=== PATIENT | male | born 1960 | race Caucasian/White ===

== ENCOUNTER → 2019-01-29 11:58 | Outpatient (CLI) | payer MEDICARE, MEDICAID, OTHER, SELFPAY ==
--- NOTE | 2019-01-29 | DI.US.S_ITS ---
PROCEDURE: US CAROTID DOPPLER BI INDICATIONS: HEADACHE TECHNIQUE: Color and pulse Doppler interrogation was performed of both carotid systems, with image documentation and velocity measurements. COMPARISON: None. FINDINGS: Stenosis calculations are based on SRU (Society of Radiologists in Ultrasound) criteria. Right side: Brachial blood pressure: 107/69 mm Hg. Common carotid artery peak systolic velocity: 129 cm/sec. Internal carotid artery peak systolic velocity: 115 cm/sec. Internal carotid artery end diastolic velocity: 40 cm/sec. External carotid artery peak systolic velocity: 180 cm/sec. ICA/CCA peak systolic ratio: 0.9 Gaines scale imaging description: Mild scattered plaque Percent internal carotid artery stenosis: Less than 50%. Vertebral artery: Flow direction is antegrade. Left side: Brachial blood pressure: 119/63 mm Hg. Common carotid artery peak systolic velocity: 103 cm/sec. Internal carotid artery peak systolic velocity: 93 cm/sec. Internal carotid artery end diastolic velocity: 37 cm/sec. External carotid artery peak systolic velocity: 265 cm/sec. ICA/CCA peak systolic ratio: 0.9. Gaines scale imaging description: Moderate scattered plaque. Percent internal carotid artery stenosis: Less than 50%. Vertebral artery: Flow direction is antegrade. IMPRESSION: 1. Less than 50% bilateral internal carotid artery stenosis. Dictated by: Ariel Rojas [facility] Interpreted: Landry Chaparro MD on 01/29/2019 at 13:41 Approved by: Landry Chaparro M.D. on 01/29/2019 at 17:11
== END ==
PROVIDERS: PCP Family Medicine; Visit Provider Family Medicine
DX: I65.23 Occlusion and stenosis of bilateral carotid arteries (principal); R51 Headache; H53.9 Unspecified visual disturbance
CPT/HCPCS: 93880

== ENCOUNTER → 2019-04-22 12:42 | Outpatient (CLI) | payer MEDICARE, MEDICAID, OTHER, SELFPAY ==
--- NOTE | 2019-04-22 | DI.CT.S_ITS ---
PROCEDURE: CT HEAD/BRAIN WO CON INDICATIONS: Headache TECHNIQUE: Noncontrast 4.5 mm thick angled axial sections acquired from the foramen magnum to the vertex, with coronal and sagittal reformats. For radiation dose reduction, the following was used: automated exposure control, adjustment of mA and/or kV according to patient size. COMPARISON: [facility], CT, HEAD WITHOUT CONTRAST, 09/05/2007, 12:53. FINDINGS: Image quality: Excellent. CSF spaces: Basal cisterns are patent. No extra-axial fluid collections. The ventricles are symmetric in size and shape. Brain: No intracranial bleeds or masses. There is cerebral volume loss for age, with resultant ventricular and sulcal prominence. There are periventricular and deep white matter chronic small vessel ischemic changes. There is intracranial internal carotid artery atherosclerosis. Skull and face: Calvarium and visualized facial bones appear intact, without suspicious lesions. Sinuses: Visualized sinuses and mastoids are clear. IMPRESSION: Unremarkable intracranial study for age, without an imaging explanation found for the patient's presenting history of headache. Dictated by: Manish Smith M.D. on 04/22/2019 at 12:17 Approved by: Manish Smith M.D. on 04/22/2019 at 12:18
== END ==
PROVIDERS: PCP Family Medicine; Referring Provider Family Medicine; Visit Provider Family Medicine
DX: R51 Headache (principal); H53.9 Unspecified visual disturbance
CPT/HCPCS: 70450

== ENCOUNTER 2021-05-08 20:05 | Emergency (ER) | payer MEDICARE, MEDICAID, SELFPAY ==
[2021-05-08] VITALS (7 sets, daily range): BP systolic 146–149; BP diastolic 66–71; PULSE 73–85; RESP 9–31; TEMP 36.6; O2SAT 98–100; BMI 24.4
--- NOTE | 2021-05-08 20:07 | DI.CT.S_ITS ---
PROCEDURE: CT ANGIO ABD AORTA RUNOFF INDICATIONS: B/L LE pain, weakness, numbness, tingling TECHNIQUE: After the administration of intravenous contrast, 2.5 mm sections acquired from T12 to the feet, with optional delayed image acquisition from the knees to the feet. 3-dimensional maximum intensity projection (MIP) coronal and sagittal reformats, and/or 3-dimensional volume rendering reformatting was then performed. For radiation dose reduction, the following was used: automated exposure control. COMPARISON: [facility] Ultrasound, US, US ARTERIAL LOWER EXTREMITY DOPPLER BILATERAL, 04/26/2021, 12:43. FINDINGS: Image quality: Excellent. Extravascular tissues: Lung bases are clear. Heart size is normal. Liver is normal in size and enhancement. Hepatic contour is nodular. Gallbladder surgically absent . Biliary system is non dilated. Pancreas enhances normally. Spleen is normal in size and enhancement. No adrenal nodules. Kidneys are normal in size and enhancement, without hydronephrosis. Moderate thickening of the sigmoid colon. Appendix not seen. No evidence of appendicitis. Non opacified bowel loops demonstrate otherwise normal wall thickness and enhancement. No free fluid or air. No retroperitoneal or mesenteric adenopathy. No ventral hernias. Bladder wall thickness is normal. No inguinal hernias or adenopathy. No suspicious bony lesions. No vertebral body compression fractures. Abdominal aorta: There is moderate diffuse plaque causing mild diffuse stenosis. No aneurysm nor dissection. Renal and mesenteric arteries: Celiac, superior mesenteric, and inferior mesenteric arteries demonstrate mild origin stenoses. There are 2 left renal arteries which are patent. Single right renal artery is present which is patent. Right lower extremity: Moderate diffuse plaque causes mild diffuse stenosis of the common iliac artery. Internal iliac artery demonstrates a moderate origin stenosis. External iliac artery demonstrates mild diffuse calcific stenosis. Common, profunda, and superficial femoral arteries demonstrate mild multifocal stenoses. Above and below knee popliteal artery is patent. Anterior tibial artery, tibioperoneal trunk, peroneal, and posterior tibial arteries are grossly patent, but are not well visualized secondary to venous overlap. Left lower extremity: Common iliac artery is occluded. There is reconstituted flow within the internal iliac artery origin which is mildly diffusely stenotic. External iliac artery is mildly diffusely narrowed, likely secondary to flow limitation. Common, profunda, and superficial femoral arteries demonstrate mild diffuse stenosis. Above and below knee popliteal arteries are patent. Anterior tibial artery, tibioperoneal trunk, peroneal and posterior tibial arteries are grossly patent, but not well seen secondary to contrast bolus timing and venous overlap. IMPRESSION: 1. Limited evaluation secondary to contrast bolus timing and venous overlap. 2. Mild diffuse aortic stenosis. 3. Left common iliac artery occlusion. No right-sided inflow stenosis. 4. No significant outflow stenosis. 5. Limited but negative evaluation of the runoff vessels. 6. Findings suggestive of cirrhosis. Clinical correlation recommended. 7. Thickening of the sigmoid colon. Initial further assessment with colonoscopy is recommended. Dictated by: William Lin M.D. on 05/08/2021 at 21:27 Approved by: William Lin M.D. on 05/08/2021 at 21:33
--- NOTE | 2021-05-08 20:12 | ED_ITS ---
HPI - Weakness General Chief complaint: Extremity Problem,Nontraumatic Stated complaint: Leg Pain Time Seen by Provider: 05/08/21 20:07 Source: EMS Mode of arrival: EMS History of Present Illness HPI Narrative: 60-year-old maleDaily smoker with history of hypertension, chronic pain, low back and leg pain presents by EMS from [facility] stating that the pain, weakness and tingling in his left leg has moved to his right leg. He has had no problem and was referred by his primary care provider to [facility] for imaging of the arterial structures in his legs which was recently done by ultrasound and noted findings suggestive of aorto iliac inflow stenosis and right-sided outflow stenosis per the report from [facility]. He reports he has a referral to some outpatient doctor at some point in the next few weeks. He denies any fever or chills. He denies chest pain or shortness of breath. He states that the pain and weakness is now in both legs and he is unable to get around at home. He has lost the ability to ambulate such that he has been urinating and lost control of his bowels on himself. He states very clearly that it was because he was unable to make it to the toilet not that he could not control himself. Related Data Home Medications Medication Instructions Recorded Confirmed HYDROCHLOROTHIAZIDE (Hydrodiuril / 25 mg PO Q DAY #0 09/05/07 07/21/20 Hctz) LISINOPRIL (Zestril / Prinivil) 40 mg PO Q DAY #0 09/05/07 07/21/20 methocarbamol 750 mg tablet 1,500 mg PO TID #0 09/05/07 07/21/20 morphine PO 07/21/20 07/21/20 oxycodone [Percolone] PO 07/21/20 07/21/20 Allergies Allergy/AdvReac Type Severity Reaction Status Date / Time codeine Allergy Verified 05/08/21 20:12 Review of Systems Review of Systems Narrative: GENERAL: Denies chills, fatigue, malaise, fever, sweats. HEENT: Denies sinus pain, ear pain, sore throat, difficulty swallowing, dizziness. RESPIRATORY: Denies dyspnea, cough, wheezing, hemoptysis, sputum. CARDIOVASCULAR: Denies chest pain, palpitations, orthopnea, edema, GASTROINTESTINAL: Denies nausea, vomiting, abdominal pain, diarrhea, constipation, melena. : Denies dysuria, frequency, incontinence, hematuria, urinary retention. MUSCULOSKELETAL: See HPI SKIN: See HPI NEUROLOGIC: See HPI PSYCHIATRIC: No concerning psychosocial issues. 12 point review of systems is negative except for those stated above Patient History Social History Smoking Status: Current every day smoker Smoking Status: Current every day smoker Substance Use Type: does not use Exam Narrative Exam Narrative: GENERAL: [60 year old patient appears older than stated age. A bit unkempt, smells of urine HEAD: Atraumatic. Normocephalic. EYES: Pupils equal round and reactive. Extraocular motions intact. No scleral icterus. No injection or drainage. ENT: Nose without bleeding, purulent drainage. Throat without erythema, tonsillar hypertrophy or exudate. Airway patent. NECK: Trachea midline. Non tender CARDIOVASCULAR: Regular rate and rhythm without murmurs, gallops, or rubs. RESPIRATORY: Clear to auscultation. Breath sounds equal bilaterally. No wheezes, rales, or rhonchi. GASTROINTESTINAL: Abdomen soft, non-tender, nondistended. EXTREMITIES: Bilateral lower extremities cool to the touch with difficult to palpate dorsalis pedis, sluggish cap refill bilaterally, no pain on palpation, no saddle anesthesia BACK: Nontender without deformity or crepitance. No flank tenderness. NEURO: AOx3. SKIN: No rash or erythema of visible areas Initial Vital Signs Initial Vital Signs: Vital Signs Temperature 97.9 F 05/08/21 20:10 Pulse Rate 85 05/08/21 20:10 Respiratory Rate 12 05/08/21 20:10 Blood Pressure 149/71 H 05/08/21 20:10 Pulse Oximetry 99 05/08/21 20:10 Course Orders Ordered: ED Orders 05/08/21 20:07 CT angio abd aorta runoff Stat 05/08/21 20:25 Complete Blood Count AUTO DIFF Stat Comprehensive Metabolic Panel Stat Lactate (Lactic Acid) Stat Magnesium Stat NT-proBNP (BNP-Adult 18+) Stat Troponin & CK Cardiac Panel Stat 05/08/21 21:03 COVID19 -Nasal swab/Pre-Proc Stat 05/08/21 21:31 EKG-12 Lead Stat 05/08/21 22:15 Partial Thromboplastin Time DAILY 05/09/21 05:00 Hemoglobin and Hematocrit DAILY 05/09/21 22:15 Partial Thromboplastin Time DAILY 05/10/21 22:15 Partial Thromboplastin Time DAILY 05/11/21 22:15 Partial Thromboplastin Time DAILY 05/12/21 22:15 Partial Thromboplastin Time DAILY 05/13/21 22:15 Partial Thromboplastin Time DAILY 05/14/21 22:15 Partial Thromboplastin Time DAILY Heparin Sodium/Dextrose (Heparin Drip) 25,000 unit in 500 mls @ 20 mls/hr IV CONT WOLFGANG; Protocol Discontinued Medications Heparin Sodium (Porcine) (Heparin 5,000 Unit/Ml Vial) 5,000 unit IV NOW ONE Stop: 05/08/21 22:16 Consultations Consultation #1: Oanh agrees with EKG result, requests transfer to [facility] Consultation #2: discussed with Dr. Castillo ([facility] ED) happy to accept Vital Signs Vital signs: Vital Signs - 8 hr 05/08/21 20:10 05/08/21 20:33 05/08/21 21:35 Temperature 97.9 F Pulse Rate 85 75 83 Respiratory Rate 12 Blood Pressure 149/71 H 146/66 H Pulse Oximetry 99 99 100 05/08/21 21:57 Temperature Pulse Rate 77 Respiratory Rate 12 Blood Pressure 146/70 H Pulse Oximetry 100 MDM - Weakness Lab Data Result diagrams: 05/08/21 20:25 05/08/21 20:25 Labs: Lab Results 05/08/21 05/08/21 05/08/21 Range/Units 20:25 20:25 20:25 WBC 16.3 H (4.5-11.0) X10^3/uL RBC 4.99 (4.5-5.9) X10^6/uL Hgb 14.3 (13.5-17.5) g/dL Hct 42.0 (41-53) % MCV 84.3 (80-100) fL MCH 28.6 (26-34) PG MCHC 34.0 (30-36) % RDW 13.3 (11.6-14.8) % Plt Count 297 (150-400) X10^3/uL Neut % (Auto) 82.2 H (50-75) % Lymph % (Auto) 8.6 L (25-40) % [place] % (Auto) 8.0 (3-14) % Eos % (Auto) 0.6 L (2-4) % Baso % (Auto) 0.6 (0-2) % Neut # (Auto) 14044 H (0326-0569) /uL Lymph # (Auto) 1400 (3132-4267) /uL [place] # (Auto) 1300 H (0-900) /uL Eos # (Auto) 100 (0-450) /uL Baso # (Auto) 100 (0-100) /uL Sodium 135 L (137-145) mmol/L Potassium 4.3 (3.4-5.1) mmol/L Chloride 97 L (98-107) mmol/L Carbon Dioxide 29 (22-32) mmol/L BUN 75 H (9-20) mg/dL Creatinine 1.49 H (0.66-1.25) mg/dL Estimated GFR 47.8 L (>60) mL/min BUN/Creatinine Ratio 50.3 H (6-22) Glucose 115 H (80-110) mg/dL Lactate 1.2 (0.7-2.1) mmol/L Calcium 10.7 H (8.4-10.2) mg/dL Magnesium 3.3 H (1.6-2.3) mg/dL Total Bilirubin 0.8 (0.2-1.3) mg/dL AST 150 H (17-59) IU/L ALT 82 H (<50) IU/L Alkaline Phosphatase 81 (38-126) U/L Total Creatine Kinase 2326 H (55-170) U/L CK-MB (CK-2) 7.82 H (<2.37) ng/mL CK-MB (CK-2) Rel Index 0.3 L (1.5-5.0) % Troponin I 0.816 H* (0.01-0.034) ng/mL NT-Pro-B Natriuret Pep 237 H (<125) pg/mL Total Protein 9.4 H (6.3-8.2) g/dL Albumin 4.8 (3.5-5.0) g/dL Globulin 4.6 H (1.7-4.1) g/dL Albumin/Globulin Ratio 1.0 (1.0-2.8) SARS-CoV-2 (PCR) (Negative) 05/08/21 Range/Units 21:03 WBC (4.5-11.0) X10^3/uL RBC (4.5-5.9) X10^6/uL Hgb (13.5-17.5) g/dL Hct (41-53) % MCV (80-100) fL MCH (26-34) PG MCHC (30-36) % RDW (11.6-14.8) % Plt Count (150-400) X10^3/uL Neut % (Auto) (50-75) % Lymph % (Auto) (25-40) % [place] % (Auto) (3-14) % Eos % (Auto) (2-4) % Baso % (Auto) (0-2) % Neut # (Auto) (3266-5028) /uL Lymph # (Auto) (0437-2647) /uL [place] # (Auto) (0-900) /uL Eos # (Auto) (0-450) /uL Baso # (Auto) (0-100) /uL Sodium (137-145) mmol/L Potassium (3.4-5.1) mmol/L Chloride (98-107) mmol/L Carbon Dioxide (22-32) mmol/L BUN (9-20) mg/dL Creatinine (0.66-1.25) mg/dL Estimated GFR (>60) mL/min BUN/Creatinine Ratio (6-22) Glucose (80-110) mg/dL Lactate (0.7-2.1) mmol/L Calcium (8.4-10.2) mg/dL Magnesium (1.6-2.3) mg/dL Total Bilirubin (0.2-1.3) mg/dL AST (17-59) IU/L ALT (<50) IU/L Alkaline Phosphatase (38-126) U/L Total Creatine Kinase (55-170) U/L CK-MB (CK-2) (<2.37) ng/mL CK-MB (CK-2) Rel Index (1.5-5.0) % Troponin I (0.01-0.034) ng/mL NT-Pro-B Natriuret Pep (<125) pg/mL Total Protein (6.3-8.2) g/dL Albumin (3.5-5.0) g/dL Globulin (1.7-4.1) g/dL Albumin/Globulin Ratio (1.0-2.8) SARS-CoV-2 (PCR) Negative (Negative) Imaging Data CT scan - abdomen/pelvis: Radiologist Impression: Launch?[address] [address] [address] Scan Report Signed Patient: Dmitri Gaines MR#: [id number] : 1960 Acct:[id number] Age/Sex: 60 / M Date of Service: 05/08/21 Loc: ED Accession Number: [id number] ?? Procedure: CT angio abd aorta runoff Ordering Provider: Neymar Gonzalez D.O. PROCEDURE:? CT ANGIO ABD AORTA RUNOFF ? INDICATIONS:? B/L LE pain, weakness, numbness, tingling ? TECHNIQUE:? After the administration of intravenous contrast, 2.5 mm sections acquired from T12 to the feet, with optional delayed image acquisition from the knees to the feet.? 3-dimensional maximum intensity projection (MIP) coronal and sagittal reformats, and/or 3-dimensional volume rendering reformatting was then performed.? For radiation dose reduction, the following was used:? automated exposure control.? ? COMPARISON:? [facility] Ultrasound, US, US ARTERIAL LOWER EXTREMITY DOPPLER BILATERAL, 04/26/2021, 12:43. ? FINDINGS:? Image quality:? Excellent.? ? Extravascular tissues:? Lung bases are clear.? Heart size is normal.? Liver is normal in size and enhancement.? Hepatic contour is nodular.? Gallbladder surgically absent .? Biliary system is non dilated.? Pancreas enhances normally.? Spleen is normal in size and enhancement.? No adrenal nodules.? Kidneys are normal in size and enhancement, without hydronephrosis.? Moderate thickening of the sigmoid colon.? Appendix not seen.? No evidence of appendicitis.? Non opacified bowel loops demonstrate otherwise normal wall thickness and enhancement.? No free fluid or air.? No retroperitoneal or mesenteric adenopathy.? No ventral hernias.? Bladder wall thickness is normal.? No inguinal hernias or adenopathy.? No suspicious bony lesions.? No vertebral body compression fractures.? ? Abdominal aorta:? There is moderate diffuse plaque causing mild diffuse stenosis.? No aneurysm nor dissection. ? Renal and mesenteric arteries:? Celiac, superior mesenteric, and inferior mesen teric arteries demonstrate mild origin stenoses.? There are 2 left renal arteries which are patent.? Single right renal artery is present which is patent. ? Right lower extremity:? Moderate diffuse plaque causes mild diffuse stenosis of the common iliac artery.? Internal iliac artery demonstrates a moderate origin stenosis.? External iliac artery demonstrates mild diffuse calcific stenosis.? Common, profunda, and superficial femoral arteries demonstrate mild multifocal stenoses.? Above and below knee popliteal artery is patent.? Anterior tibial artery, tibioperoneal trunk, peroneal, and posterior tibial arteries are grossly patent, but are not well visualized secondary to venous overlap. ? Left lower extremity:? Common iliac artery is occluded.? There is reconstituted flow within the internal iliac artery origin which is mildly diffusely stenotic.? External iliac artery is mildly diffusely narrowed, likely secondary to flow limitation.? Common, profunda, and superficial femoral arteries demonstrate mild diffuse stenosis.? Above and below knee popliteal arteries are patent.? Anterior tibial artery, tibioperoneal trunk, peroneal and posterior tibial arteries are grossly patent, but not well seen secondary to contrast bolus timing and venous overlap. ? IMPRESSION:? 1. Limited evaluation secondary to contrast bolus timing and venous overlap. 2. Mild diffuse aortic stenosis. 3. Left common iliac artery occlusion.? No right-sided inflow stenosis. 4. No significant outflow stenosis. 5. Limited but negative evaluation of the runoff vessels. 6. Findings suggestive of cirrhosis.? Clinical correlation recommended. 7. Thickening of the sigmoid colon.? Initial further assessment with colonoscopy is recommended.? ? ? Dictated by: William Lin M.D. on 05/08/2021 at 21:27 ? ? Approved by: William Lin M.D. on 05/08/2021 at 21:33 ? ECG Data Interpretation: Normal sinus rhythm, rate 73, ST elevations in the inferior leads of without signs of ectopy MDM Narrative Medical decision making narrative: Patient presents with at least a few days of right leg pain and difficulty with ambulation. He denies any chest pain or shortness of breath, unexplained diaphoresis increased exercise intolerance or other cardiac equivalents, upon receipt of critically elevated troponin EKG was obtained which notes EKG findings consistent with STEMI. Cardiology has reviewed agrees with the read, request transfer to [facility]. EMS activated schedule ED notified, patient is aware of and in agreement with the plan Discharge Plan Departure Patient Disposition: [facility] Clinical Impression: ST elevation (STEMI) myocardial infarction Prescriptions: No Action methocarbamol 750 MG tablet 1,500 mg PO TID Qty: 0 0RF LISINOPRIL (Zestril / Prinivil) 40 mg PO Q DAY Qty: 0 0RF HYDROCHLOROTHIAZIDE (Hydrodiuril / Hctz) 25 mg PO Q DAY Qty: 0 0RF morphine PO 0RF oxycodone PO 0RF Referrals: Patrick Nunez MD [Primary Care Provider] -
[2021-05-08 20:39] LABS: Add Manual Diff / Slide Review NO; Basophils Absolute Auto 100 /uL (0-100); Basophils Percent Auto 0.6 % (0-2); Eosinophils Absolute Auto 100 /uL (0-450); Eosinophils Percent Auto 0.6 % (2-4); Hemoglobin 14.3 g/dL (13.5-17.5); Lymphocytes Absolute Auto 1400 /uL (1100-4500); Lymphocytes Percent Auto 8.6 % (25-40); Mean Corpuscular Hemoglobin 28.6 PG (26-34); Mean Corpuscular Volume 84.3 fL (80-100); Monocytes Absolute Auto 1300 /uL (0-900); Neutrophils Absolute Auto 13400 /uL (1500-7000); Neutrophils Percent Auto 82.2 % (50-75); Platelet Count 297 X10^3/uL (150-400); Red Blood Cell Count 4.99 X10^6/uL (4.5-5.9); Red Cell Distribution Width 13.3 % (11.6-14.8); White Blood Cell Count 16.3 X10^3/uL (4.5-11.0)
[2021-05-08 20:53] LABS: Alanine Aminotransferase 82 IU/L (<50); Albumin 4.8 g/dL (3.5-5.0); Alkaline Phosphatase 81 U/L (38-126); Aspartate Aminotransferase 150 IU/L (17-59); BUN Creatinine Ratio 50.3 (6-22); Bilirubin Total 0.8 mg/dL (0.2-1.3); Blood Urea Nitrogen 75 mg/dL (9-20); Calcium 10.7 mg/dL (8.4-10.2); Carbon Dioxide 29 mmol/L (22-32); Chloride 97 mmol/L (98-107); Estimated Glomerular Filt Rate 47.8 mL/min (>60); Globulin 4.6 g/dL (1.7-4.1); Glucose 115 mg/dL (80-110); HEMOLYSIS < 15 (0-50); Magnesium 3.3 mg/dL (1.6-2.3); Potassium 4.3 mmol/L (3.4-5.1); Sodium 135 mmol/L (137-145); Total Protein 9.4 g/dL (6.3-8.2)
[2021-05-08 20:54] LABS: Lactate (Lactic Acid) 1.2 mmol/L (0.7-2.1)
[2021-05-08 20:59] LABS: Creatine Kinase 2326 U/L (55-170)
[2021-05-08 21:04] LABS: NT-proBNP (BNP-Adult 18+) 237 pg/mL (<125)
[2021-05-08 21:26] LABS: COVID19 -Nasal RAPID Negative (Negative)
[2021-05-08 21:31] LABS: Troponin I 0.816 ng/mL (0.01-0.034)
[2021-05-08 21:55] LABS: CKMB % Relative Index 0.3 % (1.5-5.0); Creatine Kinase MB 7.82 ng/mL (<2.37)
[2021-05-08] MEDS: HEPARIN 5,000 UNIT/ML VIAL 5000 UNIT IV (22:33)
[2021-05-08] MEDS: HEPARIN DRIP 25,000 UNIT/500 ML IV.SOLN 20 UNIT IV (22:35)
--- NOTE | 2021-05-08 22:40 | PC.NURSE ---
Pt assited to stand and void per urinal. Skin to buttock is red and painful. Brown eschar noted to skin within gluteal fold. Sadaf care performed, pt gowned and transferred to [facility] STEMI protocol. 2nd 20 amelia PIV placed to L wrist.
[2021-05-09 00:19] LABS: PTT Partial Thromboplastin Tim 35 SECONDS (26.4-36.2)
== END 2021-05-08 22:45 | disposition short-term general hospital (02) ==
PROVIDERS: Emergency Provider Emergency Medicine; PCP Family Medicine
DX: I21.3 ST elevation (STEMI) myocardial infarction of unspecified site (principal); F17.200 Nicotine dependence, unspecified, uncomplicated; Z20.822 Contact with and (suspected) exposure to COVID-19
CPT/HCPCS: 36415; 75635; 80053; 82550; 82553; 83605; 83735; 83880; 84484; 85025; 85730; 87635; 93005; 96374; 99284; 99285; C9803; J1644; Q9967

== ENCOUNTER 2021-10-16 15:18 | Emergency (ER) | payer MEDICARE, MEDICAID, SELFPAY ==
[2021-10-16] VITALS (8 sets, daily range): BP systolic 126–150; BP diastolic 62–72; PULSE 47–58; RESP 14–23; TEMP 35.8; O2SAT 94–100; BMI 34.7
--- NOTE | 2021-10-16 15:46 | DI.RAD.S_ITS ---
PROCEDURE: XR CHEST 1V INDICATIONS: chest pain TECHNIQUE: One view of the chest was acquired. COMPARISON: None. FINDINGS: Surgical changes and devices: None. Multiple overlying devices. Lungs and pleura: Lungs are clear. No pleural effusions or pneumothorax. Mediastinum: Mediastinal contours appear normal. Heart size is normal. Bones and chest wall: No suspicious bony lesions. Overlying soft tissues appear unremarkable. IMPRESSION: No evidence of an acute cardiopulmonary abnormality. Dictated by: Raul Longoria D.O. on 10/16/2021 at 15:23 Approved by: Raul Longoria D.O. on 10/16/2021 at 15:24
[2021-10-16 15:59] LABS: Add Manual Diff / Slide Review NO; Basophils Absolute Auto 0 /uL (0-100); Basophils Percent Auto 0.7 % (0-2); Eosinophils Absolute Auto 200 /uL (0-450); Eosinophils Percent Auto 2.4 % (2-4); Hematocrit 36.3 % (41-53); Hemoglobin 12.6 g/dL (13.5-17.5); Lymphocytes Absolute Auto 1700 /uL (1100-4500); Lymphocytes Percent Auto 23.5 % (25-40); Mean Corpuscular HGB Conc 34.6 % (30-36); Monocytes Absolute Auto 600 /uL (0-900); Neutrophils Absolute Auto 4600 /uL (1500-7000); Neutrophils Percent Auto 64.4 % (50-75); Platelet Count 181 X10^3/uL (150-400); Red Blood Cell Count 4.49 X10^6/uL (4.5-5.9); Red Cell Distribution Width 12.4 % (11.6-14.8); White Blood Cell Count 7.2 X10^3/uL (4.5-11.0)
[2021-10-16 16:02] LABS: Alanine Aminotransferase 16 IU/L (<50); Albumin 3.8 g/dL (3.5-5.0); Albumin Globulin Ratio 1.3 (1.0-2.8); Alkaline Phosphatase 51 U/L (38-126); Aspartate Aminotransferase 27 IU/L (17-59); BUN Creatinine Ratio 18.1 (6-22); Bilirubin Total 0.4 mg/dL (0.2-1.3); Blood Urea Nitrogen 13 mg/dL (9-20); Calcium 8.8 mg/dL (8.4-10.2); Carbon Dioxide 26 mmol/L (22-32); Chloride 107 mmol/L (98-107); Creatine Kinase 219 U/L (55-170); Estimated Glomerular Filt Rate > 60 mL/min (>60); Globulin 2.9 g/dL (1.7-4.1); Glucose 113 mg/dL (80-110); Lipase 30 U/L (23-300); Magnesium 2.1 mg/dL (1.6-2.3); Potassium 3.7 mmol/L (3.4-5.1); Sodium 137 mmol/L (137-145); Total Protein 6.7 g/dL (6.3-8.2)
[2021-10-16 16:40] LABS: HEMOLYSIS 26 (0-50)
[2021-10-16 16:41] LABS: CKMB % Relative Index 1.7 % (1.5-5.0); Creatine Kinase MB 3.72 ng/mL (<2.37)
--- NOTE | 2021-10-16 16:45 | PC.NURSE ---
notified of pt's elevate trop
--- NOTE | 2021-10-16 17:06 | ED.SYNCOPE ---
HPI - Syncope General Chief Complaint: Syncope Stated Complaint: Hypotension Time Seen by Provider: 10/16/21 16:57 Source: patient and EMS Mode of arrival: EMS Limitations: no limitations History of Present Illness HPI narrative: This 61-year-old man with known coronary disease came to the emergency department today via [facility] from [facility] after a syncopal event at home. Last night he said he suddenly did not have the strength to stand and slowly let himself down onto the ground without injury. He called on people to help him and he got into bed and slept through the night. This morning he got up and was having a reasonably normal day but then again became profoundly weak and let himself down to the ground without a fall but he could not get up so he called 911. He never had any chest pain or shortness of breath. He suspects he probably is having a heart attack. He continues to smoke cigarettes. Past history remarkable for coronary disease and cigarette smoking Related Data Home Medications Medication Instructions Recorded Confirmed HYDROCHLOROTHIAZIDE (Hydrodiuril / 25 mg PO Q DAY ##0 09/05/07 07/21/20 Hctz) LISINOPRIL (Zestril / Prinivil) 40 mg PO Q DAY ##0 09/05/07 07/21/20 methocarbamol 750 mg tablet 1,500 mg PO TID ##0 09/05/07 07/21/20 morphine PO 07/21/20 07/21/20 oxycodone [Percolone] PO 07/21/20 07/21/20 Allergies Allergy/AdvReac Type Severity Reaction Status Date / Time codeine Allergy Verified 05/08/21 20:12 Review of Systems Review of Systems Narrative: Limited review of systems is otherwise negative. Patient History Social History Smoking Status: Current every day smoker Smoking Status: Current every day smoker Substance Use Type: does not use Exam Narrative Exam Narrative: GENERAL: Alert, cooperative and in no distress. HEAD: Atraumatic. Normocephalic. EYES: Sclera are clear without icterus. Extraocular movements are full. ENT: No rhinorrhea NECK: No visible abnormality RESPIRATORY: No respiratory distress GASTROINTESTINAL: Nondistended EXTREMITIES: No obvious trauma. NEURO: Nonfocal, normal speech SKIN: No rash or erythema of visible areas PSYCH: Normally oriented. Normal range of affect. Appropriate behavior Initial Vital Signs Initial Vital Signs: Vital Signs Pulse Rate 49 L 10/16/21 15:21 Blood Pressure 130/66 10/16/21 15:21 Pulse Oximetry 97 10/16/21 15:21 Course Course Course Narrative: The patient arrived via [facility] and EKG is suspicious for inferior ischemia. EKG obtained at 3:32 p.m. shows a sinus rhythm at 49 beats per minute. He has ST segment abnormality in lead 2 3 and AVF. I was alerted by nursing staff that he wanted to leave against medical advice. I pointed out to him that his cardiac enzymes are remarkably elevated and consistent with acute ischemia. I told him that hospitalization was certainly indicated probably cardiac catheterization. He politely declines these interventions and says he would like to go home. I told him again that to though it is his option to go home without medical treatment, there is no mystery about appropriate therapy for this condition. I strongly encouraged him to stay in the hospital and continue traditional healthcare to mitigate the possible or permanent disability associated with untreated myocardial ischemia. He still would like to go home. Orders Ordered: ED Orders 10/16/21 15:00 Complete Blood Count AUTO DIFF Stat Comprehensive Metabolic Panel Stat Lipase Stat Magnesium Stat Troponin & CK Cardiac Panel Stat 10/16/21 15:32 EKG-12 Lead Stat 10/16/21 15:46 XR chest 1V Stat Vital Signs Vital signs: Vital Signs - 8 hr 10/16/21 15:32 10/16/21 15:21 10/16/21 15:21 Temperature 96.4 F L Pulse Rate 48 L 49 L Respiratory Rate 14 Blood Pressure 126/62 130/66 Pulse Oximetry 94 97 Oxygen Delivery Method Room Air 10/16/21 15:30 10/16/21 15:31 10/16/21 15:31 Temperature Pulse Rate 47 L 48 L Respiratory Rate 18 17 Blood Pressure 126/62 Pulse Oximetry 96 98 Oxygen Delivery Method 10/16/21 16:00 10/16/21 16:01 10/16/21 16:01 Temperature Pulse Rate 51 L 51 L Respiratory Rate 23 20 Blood Pressure 139/65 Pulse Oximetry 100 100 Oxygen Delivery Method 10/16/21 16:30 10/16/21 16:30 Temperature Pulse Rate 50 L Respiratory Rate 17 Blood Pressure 134/69 Pulse Oximetry 100 Oxygen Delivery Method [facility] - Syncope Lab Data Result diagrams: 10/16/21 15:00 10/16/21 15:00 Labs: Lab Results 10/16/21 10/16/21 Range/Units 15:00 15:00 WBC 7.2 (4.5-11.0) X10^3/uL RBC 4.49 L (4.5-5.9) X10^6/uL Hgb 12.6 L (13.5-17.5) g/dL Hct 36.3 L (41-53) % MCV 81.0 (80-100) fL MCH 28.0 (26-34) PG MCHC 34.6 (30-36) % RDW 12.4 (11.6-14.8) % Plt Count 181 (150-400) X10^3/uL Neut % (Auto) 64.4 (50-75) % Lymph % (Auto) 23.5 L (25-40) % Emmet % (Auto) 9.0 (3-14) % Eos % (Auto) 2.4 (2-4) % Baso % (Auto) 0.7 (0-2) % Neut # (Auto) 4600 (2805-3941) /uL Lymph # (Auto) 1700 (4459-6606) /uL Emmet # (Auto) 600 (0-900) /uL Eos # (Auto) 200 (0-450) /uL Baso # (Auto) 0 (0-100) /uL Sodium 137 (137-145) mmol/L Potassium 3.7 (3.4-5.1) mmol/L Chloride 107 (98-107) mmol/L Carbon Dioxide 26 (22-32) mmol/L BUN 13 (9-20) mg/dL Creatinine 0.72 (0.66-1.25) mg/dL Estimated GFR > 60 (>60) mL/min BUN/Creatinine Ratio 18.1 (6-22) Glucose 113 H (80-110) mg/dL Calcium 8.8 (8.4-10.2) mg/dL Magnesium 2.1 (1.6-2.3) mg/dL Total Bilirubin 0.4 (0.2-1.3) mg/dL AST 27 (17-59) IU/L ALT 16 (<50) IU/L Alkaline Phosphatase 51 (38-126) U/L Total Creatine Kinase 219 H (55-170) U/L CK-MB (CK-2) 3.72 H (<2.37) ng/mL CK-MB (CK-2) Rel Index 1.7 (1.5-5.0) % Troponin I 1.410 H* (0.01-0.034) ng/mL Total Protein 6.7 (6.3-8.2) g/dL Albumin 3.8 (3.5-5.0) g/dL Globulin 2.9 (1.7-4.1) g/dL Albumin/Globulin Ratio 1.3 (1.0-2.8) Lipase 30 (23-300) U/L Discharge Plan Departure Patient Disposition: Left Against Medical Advice Clinical Impression: Non-STEMI (non-ST elevated myocardial infarction) Activity Restrictions/Additional Instructions: You are having a heart attack as you suspected. I recommend hospitalization and consultation with [facility] specialists. You have declined this care. You understand that you are at risk for dying from an acute heart attack or suffering permanent and profound disability associated with heart attack. You are welcome to return to the ED at any point for complete evaluation and appropriate care. I strongly encouraged to follow-up with her primary care doctor. Your cigarette smoking is certainly contributing to your coronary disease and I encourage you to quit smoking. Prescriptions: No Action methocarbamol 750 MG tablet 1,500 mg PO TID Qty: 0 LISINOPRIL (Zestril / Prinivil) 40 mg PO Q DAY Qty: 0 HYDROCHLOROTHIAZIDE (Hydrodiuril / Hctz) 25 mg PO Q DAY Qty: 0 morphine PO oxycodone PO Referrals: Patrick Nunez MD [Primary Care Provider] - Stand Alone Forms: Against Medical Advice
--- NOTE | 2021-10-16 17:26 | PC.NURSE ---
pt left er in nad with all belongings, ambulatory with own 4 wheel walker. pt refused to take dc/ fu paperwork, but signed dc papers and gave back and signed AMA paperwork after conversation with Dr. Prather.
== END 2021-10-16 17:32 | disposition left against medical advice (07) ==
PROVIDERS: Emergency Provider Family Medicine Addiction Medicine; PCP Family Medicine
DX: I21.4 Non-ST elevation (NSTEMI) myocardial infarction (principal)
CPT/HCPCS: 71045; 80053; 82550; 82553; 83690; 83735; 84484; 85025; 93005; 93010; 99283; 99284

== ENCOUNTER → 2021-12-23 06:58 | Outpatient (CLI) | payer MEDICARE, MEDICAID, SELFPAY ==
[2021-12-23 19:41] LABS: COVID19 - ORCAS (NP or Nasal) Negative (Negative)
== END ==
PROVIDERS: PCP Family Medicine; Visit Provider Family Medicine
DX: Z20.822 Contact with and (suspected) exposure to COVID-19 (principal); Z01.812 Encounter for preprocedural laboratory examination
CPT/HCPCS: C9803; U0003

== ENCOUNTER → 2022-11-14 10:40 | Outpatient (CLI) | payer MEDICARE, MEDICAID, SELFPAY ==
--- NOTE | 2022-11-14 10:58 | DI.CT.S_ITS ---
PROCEDURE: CT IVP A/P W/WO INDICATIONS: HEMATURIA TECHNIQUE: Optional 5 mm thick noncontrast images acquired from the diaphragm to the symphysis pubis. After the administration of intravenous contrast, 5 mm thick images acquired from the diaphragm to the symphysis pubis after a 10-minute delay. 2 mm thick coronal and sagittal reformats were then performed of the kidneys and ureters. For radiation dose reduction, the following was used: automated exposure control, adjustment of mA and/or kV according to patient size. COMPARISON: None. FINDINGS: Image quality: Good Lower chest: Basal scarring and atelectasis. Coronary calcifications. No hiatal hernia. Overall normal heart size. Solid organs: Liver is unremarkable. Gallbladder is absent. Post cholecystectomy moderate biliary ductal dilation is present. Correlate with any LFT abnormalities. No splenomegaly. No adrenal nodules. No solid renal mass is identified. No hydronephrosis. No calcified stones. No ureter filling defects. Portions of ureter are non opacified, possibly due to peristalsis. Vessels and lymph nodes: The main portal vein is patent. No abdominal aortic aneurysm or pathologic lymph nodes by size criteria. Atherosclerotic disease of the abdominal aorta, with soft plaque in the infrarenal portion. Bowel and peritoneum: No bowel obstruction. Under distended distal colon and rectum, with possible wall thickening, please correlate with age-appropriate colonoscopy results. No pathologic ascites. Body wall: Unremarkable Pelvis: No calcified bladder stone identified. The bladder is only partially distended, overall unremarkable CT appearance. The prostate is mildly heterogeneous, not well evaluated on CT. Bones: No acute or suspicious osseous finding. There are degenerative changes. IMPRESSION: No solid renal mass identified. No hydronephrosis or calcified stones. Lower tract should be better evaluated with cystoscopy in the setting of hematuria. Wall thickening of the distal colon and rectum, difficult to evaluate due to under distension, correlate with screening colonoscopy. Other findings as above. Dictated by: Surendra Mills M.D. on 11/14/2022 at 15:27 Approved by: Surendra Mills M.D. on 11/14/2022 at 15:36
== END ==
PROVIDERS: PCP Family Medicine; Referring Provider Urology; Visit Provider Urology
DX: R31.9 Hematuria, unspecified (principal); I25.10 Atherosclerotic heart disease of native coronary artery without angina pectoris; I70.0 Atherosclerosis of aorta; F17.200 Nicotine dependence, unspecified, uncomplicated; Z90.49 Acquired absence of other specified parts of digestive tract
CPT/HCPCS: 74178

== ENCOUNTER → 2023-04-17 13:44 | Outpatient (CLI) | payer OTHER, MEDICAID, SELFPAY ==
--- NOTE | 2023-04-21 02:33 | DI.NM.S_ITS ---
DATE OF SERVICE: 04/17/2023 STUDY: Pharmacological perfusion study. Resting study done today. Two- day study. INDICATIONS: Significant peripheral arterial disease with hypertension, hyperlipidemia, tobacco abuse, being planned to have lower extremity intervention by vascular surgeon, perfusion study being done for CAD risk stratification. RADIOPHARMACEUTICAL: 26.8 mCi technetium-99m Myoview IV was injected at stress and 26 mCi technetium-99m Myoview IV was injected at rest. CARDIAC STRESS: Patient underwent IV Lexiscan perfusion study under the supervision of an attending staff using standard Lexiscan as per protocol. Baseline rhythm, sinus bradycardia with heart rate about 47 beats per minute. Resting blood pressure 118/60. Patient remained overall hemodynamically stable. Rhythm unchanged. No new ischemic changes or new arrhythmias. Post Lexiscan blood pressure 90/50. Resting blood pressure 118/60. needed. RAW DATA: There is increased subdiaphragmatic activity. Hot spot near the inferior border of the heart. Patient's weight is 230 pounds. GATED STUDY: Stress LV ejection fraction 70% without any obvious wall motion abnormalities. Resting end-diastolic volume 135 mL. TID ratio 1.02 and lung heart ratio 0.24, which is within normal limits. However, during gated study, there appears to be some LV dilatation during stress in comparison to resting study. MYOCARDIAL PERFUSION SCAN: Stress supine and resting supine images were compared to each other. There is no stress prone images. Patient could not lie down in prone position. Resting supine images revealed large size, severely decreased perfusion of inferior wall extending into the inferior apex as well as anterior apex. Stress supine images revealed large size, severely decreased perfusion of inferior wall extending into the inferior apex as well as anterior apex. In addition to that, patient also had moderate size, mildly decreased perfusion of mid to distal anterior wall. Reversibility seen in the mid to distal anterior wall area. CONCLUSION: This is an abnormal myocardial perfusion study. There is a moderate size, mild reversible ischemia of mid to distal anterior wall. Otherwise large size, severely decreased predominantly fixed defect of inferior wall extending into the apex. On raw images, there is a hot spot near inferior border of the heart. Patient's weight is 230 pounds. There is no stress prone images. Suspect some of the component of tissue attenuation artifact, however, multivessel coronary artery disease including infarction in the RCA territory cannot be ruled out. There is also reversible ischemia in the mid LAD territory. On raw images, there appears to be stress-induced dilatation of LV in comparison to resting study; however, TID is not abnormal. Overall, left ventricular function appears to be preserved. Correlate clinically and consider left heart catheterization for further delineation of coronary artery. GainesDmitri - ARCHITECTURAL RENDERER/fn/ec doc#: [id number]/job#: [id number] dd: 04/20/2023 16:45:00 dt: 04/21/2023 01:41:00 DICTATING MD/COPIES TO: Christina Hugo MD; Rosalinda Skelton MD COPIES MNE: YENIFER;
== END ==
LOC: NUCM 13:45
PROVIDERS: PCP Family Medicine; Referring Provider Surgery; Visit Provider Surgery
DX: I25.10 Atherosclerotic heart disease of native coronary artery without angina pectoris (principal); R94.39 Abnormal result of other cardiovascular function study; I70.219 Atherosclerosis of native arteries of extremities with intermittent claudication, unspecified extremity; F17.200 Nicotine dependence, unspecified, uncomplicated
CPT/HCPCS: 78452; 93017; A9502; J2785

== ENCOUNTER → 2023-10-03 10:40 | Outpatient (CLI) | payer MEDICARE, MEDICAID, SELFPAY ==
[2023-10-03 11:56] LABS: Appearance Urine UA CLEAR; Bilirubin Urine UA NEGATIVE (NEGATIVE); Color Urine UA YELLOW; Glucose Urine UA NEGATIVE (Negative); Ketones Urine UA NEGATIVE (NEGATIVE); Leukocyte Esterase Urine UA NEGATIVE (NEGATIVE); Nitrite Urine UA NEGATIVE (Negative); Occult Blood Urine UA 2+ (Negative); Protein Urine UA 1+ (Negative); Specific Gravity Urine UA 1.015 (1.000-1.035); Urine Volume 10mL (spun)
[2023-10-03 12:00] LABS: Bacteria Urine None Seen; Culture Indicated Urine Cult Not Indicated; RBC Urine 5-10/HPF (0-5/HPF); Squamous Epithelial Cell Urine None Seen (0-5/HPF); WBC Urine None Seen (0-5/HPF)
== END ==
PROVIDERS: PCP Family Medicine; Referring Provider Family Medicine; Visit Provider Family Medicine
DX: R31.0 Gross hematuria (principal)
CPT/HCPCS: 81001

== ENCOUNTER → 2023-12-05 11:33 | Outpatient (CLI) | payer MEDICARE, MEDICAID, SELFPAY ==
--- NOTE | 2023-12-05 11:34 | DI.MRI.S_ITS ---
PROCEDURE: MR LUMBAR SPINE WO CON INDICATIONS: LUMBAR RADICULOPATHY/NUMBNESS HAND/ANESTHESIA SKIN TECHNIQUE: Noncontrast sagittal T1 spin echo and T2 fast echo, sagittal STIR, and T2 fast spin echo through the lumbar spine. In cases with scoliosis, additional coronal T2 fast spin echo may be performed. COMPARISON: None. FINDINGS: Image quality: Excellent. Alignment and Curvature: Straightening of the normal lumbar lordosis. Mild retrolisthesis of L4 on L5. Bone Marrow: Degenerative endplate changes, most pronounced at L4-5. Marrow is of normal overall signal. No acute vertebral body compression fractures. Spinal Cord: Conus medullaris terminates at the L1-L2 level. Visualized cord demonstrates normal signal and size. Paraspinous Soft Tissues: No paravertebral masses. T12-L1: Normal appearance. L1-L2: Disc desiccation and mild height loss. Mild disc bulge. Facet arthropathy. Mild central canal stenosis. Mild bilateral neural foraminal stenosis. L2-L3: Disc desiccation. Facet arthropathy and thickening of ligamentum flavum. Epidural lipomatosis. Moderate central canal stenosis. Mild bilateral neural foraminal stenosis. L3-L4: Disc desiccation and mild disc bulge. Facet arthropathy and thickening of ligamentum flavum. Right foraminal disc protrusion. Mild to moderate central canal stenosis. Moderate bilateral neural foraminal stenosis. L4-L5: Disc desiccation and mild height loss. Diffuse disc bulge. Small central disc extrusion extending inferiorly. Facet arthropathy and thickening of ligamentum flavum. Moderate central canal stenosis. Narrowing of the right lateral recess with possible impingement the descending right L5 nerve root. Severe bilateral neural foraminal stenosis. L5-S1: Disc desiccation and diffuse disc bulge. Small central superimposed disc protrusion. Right subarticular disc extrusion extending inferiorly with annular tear. Narrowing the right lateral recess with possible impingement the descending right S1 nerve root. No significant central canal stenosis. Severe bilateral neural foraminal stenosis. IMPRESSION: 1. Multilevel degenerative changes of the lumbar spine as described above. 2. Moderate central canal stenosis at L2-L3 and L4-5. 3. Severe bilateral neural foraminal stenosis at L4-5 and L5-S1. 4. Narrowing of the right lateral recess at L4-5 and L5-S1 with possible impingement the descending right L5 and S1 nerve roots. Dictated by: Kali Toledo M.D. on 12/05/2023 at 14:51 Approved by: Kali Toledo M.D. on 12/05/2023 at 14:56
--- NOTE | 2023-12-05 11:34 | DI.MRI.S_ITS ---
PROCEDURE: MR CERVICAL SPINE WO CON INDICATIONS: LUMBAR RADICULOPATHY/NUMBNESS HAND/ANESTHESIA SKIN TECHNIQUE: Noncontrast sagittal T1 spin echo and T2 fast spin echo, sagittal STIR, foraminal oblique sagittal T2 fast spin echo, and axial gradient echo or T2 fast spin echo through the cervical spine. COMPARISON: None. FINDINGS: Image quality: Excellent. Alignment and Curvature: Straightening of the normal cervical lordosis. Bone Marrow: Degenerative endplate changes, most pronounced at C5-C6. Marrow demonstrates normal overall signal. Spinal Cord: Mild T2 hyperintense signal within the cord at C3-C4 and C5-C6, likely myelomalacia. Paraspinous Soft Tissues: No paravertebral masses. Prevertebral soft tissues are normal in thickness. C2-C3: Disc desiccation and posterior disc osteophyte complex. Thickened ligamentum flavum. Compression of the cord. Severe central canal stenosis. Facet and uncovertebral arthropathy. [id number] bilateral neural foraminal stenosis. C3-C4: Disc desiccation and large posterior disc osteophyte complex. Thickening of ligamentum flavum. Severe central canal stenosis with compression of the cord and cord signal abnormality. Facet and uncovertebral arthropathy. Severe bilateral neural foraminal stenosis. C4-C5: Disc desiccation and mild posterior disc osteophyte complex. Mild central canal stenosis. Facet and uncovertebral arthropathy. Moderate bilateral neural foraminal stenosis. C5-C6: Disc desiccation and severe disc height loss. Edema is noted within the disc. Moderate to severe central canal stenosis with associated cord signal abnormality. Facet and uncovertebral arthropathy. Severe bilateral neural foraminal stenosis. C6-C7: Disc desiccation and mild posterior disc osteophyte complex. Mild to moderate central canal stenosis. Facet and uncovertebral arthropathy. Severe right and moderate left neural foraminal stenosis. C7-T1: Disc desiccation. No central canal stenosis. Facet and uncovertebral arthropathy. Moderate bilateral neural foraminal stenosis. IMPRESSION: 1. Severe degenerative changes of the cervical spine as described above. 2. Severe central canal stenosis at C2-C3 and C3-C4. Moderate to severe central canal stenosis at C5-C6. 3. Severe neural foraminal stenosis bilaterally at C3-C4 and C5-C6 and on the right at C6-C7. 4. T2 hyperintense signal within the cord at C3-C4 and C5-C6, likely representing myelomalacia. Dictated by: Kali Toledo M.D. on 12/05/2023 at 14:47 Approved by: Kali Toledo M.D. on 12/05/2023 at 14:51
== END ==
PROVIDERS: PCP Family Medicine; Referring Provider Family Medicine; Visit Provider Family Medicine
DX: M48.02 Spinal stenosis, cervical region (principal); M47.812 Spondylosis without myelopathy or radiculopathy, cervical region; M51.17 Intervertebral disc disorders with radiculopathy, lumbosacral region; M51.16 Intervertebral disc disorders with radiculopathy, lumbar region; M47.26 Other spondylosis with radiculopathy, lumbar region; M48.07 Spinal stenosis, lumbosacral region; M48.061 Spinal stenosis, lumbar region without neurogenic claudication; R20.0 Anesthesia of skin; M62.549 Muscle wasting and atrophy, not elsewhere classified, unspecified hand
CPT/HCPCS: 72141; 72148